=== PATIENT | female | born 1945 | race Caucasian/White ===

== ENCOUNTER 2018-01-18 21:07 | Observation (INO) | payer OTHER ==
--- NOTE | 2018-01-18 21:48 | EDPHY ---
H & P Stated Complaint: fall, left buttock injury Time Seen by Provider: 01/18/18 21:34 HPI/ROS: CHIEF COMPLAINT: Left buttock pain post mechanical fall HISTORY OF PRESENT ILLNESS: 72-year-old female arrives via private vehicle with family members complaining of acute left inferior buttock and sacral pain after she tripped on incongruent he, landed on her left buttock. This occurred earlier this evening. She has been unable to bear weight, borrowed a neighbor' s wheelchair. This was a mechanical non syncopal episode. She denies: Head injury, alcohol or drug use, C-spine pain or injury, thoracic or lumbar pain or injury, chest pain or injury, femoral pain or injury. REVIEW OF SYSTEMS: 10 systems reviewed and negative with the exception of the elements mentioned in the history of present illness PAST MEDICAL/SURGICAL HISTORY: no anticoagulant use, no relevant medical/ surgical history SOCIAL HISTORY: denies alcohol use at time of incident PHYSICAL EXAM 1) GENERAL: Well-developed, well-nourished, alert and oriented. Appears to be in no acute distress. Answering questions appropriately. 2) HEAD: Normocephalic, atraumatic 3) HEENT: Pupils equal, round, reactive to light bilaterally. Negative Horners. Nasopharynx, oropharynx, clear. No deformity or angulation of nose. No septal hematoma. No rhinorrhea. No oral trauma. Ears bilaterally with normal tympanic membranes. No hemotympanum. No fluid or blood in the external auditory canal. No raccoon eyes. No Harper sign. 4) NECK: No cervical collar is on. Posterior cervical spine is nontender, no stepoff, no effusion. Full range of motion which does not elicit any midline cervical spine pain, no posterior midline tenderness, no step-off. 5) LUNGS: Clear to auscultation bilaterally, no wheezes, no rhonchi, no retractions. No obvious signs of trauma. No chest wall pain. No flaring, no grunting. Moving symmetrically. No crepitus. 6) HEART: Regular rate and rhythm, 7) ABDOMEN: No guarding, no rebound, no focal tenderness, no peritoneal signs, no signs of trauma, no ecchymosis 8) MUSCULOSKELETAL: Tender to palpation inferior left buttock with soft compartments, no ecchymosis. Patella, Achilles reflex intact, no footdrop. Strength 5/5. No signs of trauma.No leg length discrepancy, no shortening no malrotation. Femur, hip nontender. No acetabular pain, no pain tender to palpation greater trochanteric region, soft compartment. 9) BACK: No midline vertebral thoracic lumbar pain tenderness. Tender to palpation lateral left sacral ala. 10) SKIN: No laceration. No abrasion DIFFERENTIAL DIAGNOSIS: In no particular order including but not limited to fracture, sprain, strain, dislocation - Personal History Current Tetanus Diphtheria and Acellular Pertussis (TDAP): Unsure - Medical/Surgical History Hx Asthma: No Hx Chronic Respiratory Disease: No Hx Diabetes: No Hx Cardiac Disease: No Hx Renal Disease: No Hx Cirrhosis: No Hx Alcoholism: No Hx HIV/AIDS: No Hx Splenectomy or Spleen Trauma: No Other PMH: elev cholersterol - Social History Smoking Status: Never smoked Constitutional: Initial Vital Signs Temperature (C) 37.2 C 01/18/18 21:14 Heart Rate 83 01/18/18 21:14 Respiratory Rate 20 01/18/18 21:14 Blood Pressure 122/81 H 01/18/18 21:14 O2 Sat (%) 94 01/18/18 21:14 O2 Delivery Mode Room Air Allergies/Adverse Reactions: No Known Allergies Allergy (Unverified 01/18/18 21:13) Home Medications: Medication Instructions Recorded Prevastatin 01/18/18 ED Images - Female Images Womans Torso Front/Back: 1 - tender to palpation Medical Decision Making - Diagnostics Imaging Results: Imaging Impressions Hip X-Ray 01/18/18 21:44 Impression: Negative. No discernible fracture. Pelvis CT 01/18/18 22:17 Impression: 1. Acute nondisplaced isolated fracture left posterior acetabular column. 2. No other pelvic fracture or femoral neck fracture. 3. No free fluid or hematoma. Findings discussed with Emergency Department physician sales assistant displaysYecenia at 01/18/2018 23:09. ED Course/Re-evaluation: 9:47 p.m.: Will obtain x-rays and re-evaluate. I saw this patient independently based on established practice protocols. Care of patient under supervision of secondary supervising physician Dr Rivero . 11:10 p.m.: I discussed with the patient her imaging studies showing a nondisplaced posterior acetabulum fracture. The patient is unable to bear weight. I had a lengthy discussion with her family and they are in agreement that they do not think it is safe for the patient be discharged. Will plan on admission to hospitalist service with orthopedic consultation. 11:16 p.m.: Consultation with Dr. Stewart Resendez who will consult orthopedics. Will consult with hospitalist 1120 pm: Consultation with Dr. Cortez who will admit patient. Departure - Departure Disposition: [facility] Inpatient Acute Clinical Impression: Left acetabular fracture Qualifiers: Encounter type: initial encounter Sublocation of acetabulum: posterior wall Fracture type: closed Fracture alignment: nondisplaced Qualified Code(s): S32.425A - Nondisplaced fracture of posterior wall of left acetabulum, initial encounter for closed fracture Condition: Fair Referrals: Michelle Avila MD [Primary Care Provider] - As per Instructions
[2018-01-18] MEDS ORDERED: ONDANSETRON DISINTEGRATING 4 MG TAB PO PRN (23:25)
[2018-01-18] MEDS ORDERED: ONDANSETRON 4 MG/2 ML VIAL IVP PRN (23:25)
[2018-01-18] MEDS ORDERED: IBUPROFEN 200 MG TAB PO PRN (23:25)
[2018-01-18] MEDS ORDERED: oxyCODONE IR 5 MG TAB PO PRN (23:25)
[2018-01-18 23:34] LABS: PLATELET COUNT 262 10^3/uL (150-400)
--- NOTE | 2018-01-19 00:31 | PDGENHP ---
History and Physical - Chief Complaint Fall - History of Present Illness 72 yo F w/ minimal PMHx presents after a fall. She was walking home from the grocery store when she tripped on a manhole cover and fell onto her L side. She then experienced significant L sided pelvic pain with ambulation. She denies LOC or head injury. Evaluation in the ED notable for acetabular fracture. She is unable to walk due to pain so she is being admitted for further management. Case discussed with ED physician Dr. Duarte; records reviewed in EMR. History Information - Allergies/Home Medication List Allergies/Adverse Reactions: No Known Allergies Allergy (Unverified 01/18/18 21:13) Home Medications: Prevastatin 01/18/18 [Last Taken Unknown] I have personally reviewed and updated: family history, medical history - Past Medical History hyperlipidemia - Surgical History Reports: no pertinent surgical hx - Family History Positive for: CAD - Social History Smoking Status: Never smoked Review of Systems Review of Systems: ROS: 10pt was reviewed & negative except for what was stated in HPI & below Physical Exam Physical Exam: Temp Pulse Resp BP Pulse Ox 37.1 C 85 16 128/72 H 93 01/19/18 00:04 01/19/18 00:04 01/19/18 00:04 01/19/18 00:04 01/19/18 00:04 Constitutional: appears nourished, uncomfortable Eyes: PERRL, EOMI Ears, Nose, Mouth, Throat: moist mucous membranes, no oral mucosal ulcers Cardiovascular: regular rate and rhythym, no murmur, rub, or gallop Respiratory: no respiratory distress, clear to auscultation Gastrointestinal: normoactive bowel sounds, soft, non-tender abdomen Skin: warm, normal color, no fluctuance Musculoskeletal: pain with ROM (L hip) Neurologic: AAOx3, CN II-XII Intact Psychiatric: interacting appropriately, not anxious Lab Data & Imaging Review 01/18/18 23:25 01/18/18 23:25 WBC 11.55 10^3/uL (3.80-9.50) H 01/18/18 23:25 RBC 4.59 10^6/uL (4.18-5.33) 01/18/18 23:25 Hgb 14.3 g/dL (12.6-16.3) 01/18/18 23:25 Hct 41.4 % (38.0-47.0) 01/18/18 23:25 MCV 90.2 fL (81.5-99.8) 01/18/18 23:25 MCH 31.2 pg (27.9-34.1) 01/18/18 23:25 MCHC 34.5 g/dL (32.4-36.7) 01/18/18 23: RDW 12.6 % (11.5-15.2) 01/18/18: Plt Count 262 10^3/uL (150-400) 01/18/18 23: MPV 9.7 fL (8.7-11.7) 01/18/18:25 Neut % (Auto) 68.9 % (39.3-74.2) 01/18/18 23: Lymph % (Auto) 21.3 % (15.0-45.0) 01/18/18: Peñuelas % (Auto) 8.4 % (4.5-13.0) 01/18/18: Eos % (Auto) 0.5 % (0.6-7.6) L 01/18/18 23: Baso % (Auto) 0.6 % (0.3-1.7) 01/18/18: Nucleat RBC Rel Count 0.0 % (0.0-0.2) 01/18/18: Absolute Neuts (auto) 7.96 10^3/uL (1.70-6.50) H 01/18/18 23:25 Absolute Lymphs (auto) 2.46 10^3/uL (1.00-3.00) 01/18/18 23: Absolute Monos (auto) 0.97 10^3/uL (0.30-0.80) H 01/18/18 23:25 Absolute Eos (auto) 0.06 10^3/uL (0.03-0.40) 01/18/18 23: Absolute Basos (auto) 0.07 10^3/uL (0.02-0.10) 01/18/18 23: Absolute Nucleated RBC 0.00 10^3/uL (0-0.01) 01/18/18 23:25 Immature Gran % 0.3 % (0.0-1.1) 01/18/18 23:25 Immature Gran # 0.03 10^3/uL (0.00-0.10) 01/18/18 23:25 Sodium 137 mEq/L (135-145) 01/18/18 23:25 Potassium 4.2 mEq/L (3.3-5.0) 01/18/18 23:25 Chloride 104 mEq/L (97-110) 01/18/18 23:25 Carbon Dioxide 24 mEq/l (22-31) 01/18/18 23:25 Anion Gap 9 mEq/L (8-16) 01/18/18 23:25 BUN 25 mg/dL (7-23) H 01/18/18 23:25 Creatinine 1.0 mg/dL (0.6-1.0) 01/18/18 23:25 Estimated GFR 54 01/18/18 23:25 Glucose 94 mg/dL (70-100) 01/18/18 23:25 Calcium 10.0 mg/dL (8.5-10.4) 01/18/18 23:25 Imaging Review: Imaging Impressions Hip X-Ray 01/18/18 21:44 Impression: Negative. No discernible fracture. Pelvis CT 01/18/18 22:17 Impression: 1. Acute nondisplaced isolated fracture left posterior acetabular column. 2. No other pelvic fracture or femoral neck fracture. 3. No free fluid or hematoma. Findings discussed with Emergency Department physician after school program assistantYecenia at 01/18/2018 23:09. Assessment & Plan Assessment: 72 yo F w/ hx of HLD presents with L acetabular fracture after a mechanical fall. Plan: 1. Pelvic fracture - CT(personally interpreted) reveals L posterior acetabular fracture. Patient is comfortable at rest but having pain with attempted ambulation. - Admit for observation - Orthopedics service consulted - Pain control with APAP annamaria + ibuprofen PRN (mod) and oxycodone PRN (severe) - PT/OT evaluations 2. HLD - Continue statins Diet - Regular (Non-surgical management expected) Code - Full Ppx - SCDs Dispo - Admit under observation status
[2018-01-19] MEDS: ACETAMINOPHEN 500 MG TAB PO SCH ×3 (01:18→15:24)
[2018-01-19 05:23] LABS: PLATELET COUNT 245 10^3/uL (150-400)
--- NOTE | 2018-01-19 07:13 | GCON ---
DATE OF CONSULTATION: 01/19/2018 CHIEF COMPLAINT: Left hip pain. HISTORY OF PRESENT ILLNESS: The patient is a 72-year-old community ambulator without assistive devic es, who sustained a fall resulting in left hip pain. She denies any previous problems or injuries re lative to her left hip. EXAMINATION: Relative to the consultation, she has symmetrical limb length, angulation and rotation. She has full hip range of motion with very minimal pain throughout complete range of motion. She h as no significant pain produced with noted range of motion with the hip at a flexed position. Her di stal neurovascular exam is intact. IMAGING: Review of CT scan shows evidence of a nondisplaced posterior wall acetabular fracture, enco mpassing approximately 25% of the overall articular surface. ASSESSMENT: Left posterior wall acetabular fracture. PLAN: Based on the displaced nature of her fracture, which encompasses a small portion of the articu lar surface, it was recommended that a nonoperative treatment course be pursued. She will be allowed to weight bear with a walker as tolerated. She was informed that the extreme likelihood is that thi s injury will heal nonsurgically. There is a small chance of development of a nonunion or posttrauma tic arthritis. Followup will be on an as-needed basis. /[id number]/MODL
[2018-01-19 10:44] VITALS: BP 138/78
[2018-01-19] MEDS ORDERED: traMADol 50 MG TAB PO PRN (12:40)
--- NOTE | 2018-01-19 13:10 | PDIAF ---
- Diagnosis Diagnosis: pelvic fracture Code Status: Full Code - Medication Management Discharge Medications: Medications to Continue on Transfer Pravastatin Sodium 20 mg PO HS 01/18/18 [Last Taken 01/17/18] Acetaminophen [Tylenol 325mg (*)] 650 mg PO Q6HRS PRN #90 01/19/18 [Last Taken Unknown] Cholecalciferol Vit D3 [Vitamin D3 (*)] 1,000 units PO HS 01/19/18 [Last Taken 01/17/18] Ibuprofen [Motrin (*)] 400 mg PO Q4HRS PRN #0 tab 01/19/18 [Last Taken Unknown] traMADol [Ultram 50 mg (*)] 25 mg PO Q4 PRN #30 tab 01/19/18 [Last Taken Unknown ] Discharge Medications: Refer to the Discharge Home Medication list for PRN reason. - Orders Services needed: Certified Siderographist, Physical Therapy, Occupational Therapy Diet Recommendation: no restrictions on diet Diet Texture: Regular Texture Diet Additional Instructions: Activity: Weight bearing with walker as tolerated F/U: with PCP in 1-2 weeks Please control pain with Tylenol and Ibuprofen. If still with pain, please try Tramadol as prescribed. Home Health care has been set up for you. - Follow Up Care Current Providers and Referrals: Michelle Avila MD [Primary Care Provider] - As per Instructions
--- NOTE | 2018-01-19 13:16 | PDDCSUM ---
Discharge Summary Discharge Summary: 72 yo F w/ hx of HLD presents with L acetabular fracture after a mechanical fall. She was evaluated by Orthopedics who recommended conservative management. Please see their consultation note. Pain has been well controlled with Tylenol, Ibuprofen, and Tramadol. PT has recommended HHC and this is being set up with additional PT/OT support. She is weight bearing with walker as tolerated. She will f/u with her PCP in one week. DDX: 1. Left posterior wall Acetabular fracture - CT reveals L posterior acetabular fracture. Patient is comfortable at rest but having pain with attempted ambulation. 2. HLD - Continue statins Exam: NAD AAOX3 RRR CTA B S/NT/ND MEDS: SEE MED REC F/U: PER ABOVE TOTAL TIME SPENT ON D/C IS 35 MINS
--- NOTE | 2018-01-19 17:43 | ASMTLACE ---
LACE Length of stay for Answers: 1 day current admission Acuity / Level of Answers: No Care: Did the patient have an inpatient admission? Comorbidities - select Answers: Other Notes: Hyperlipidemia all that apply # of Emergency department Answers: 1-2 visits in the last 6 months Score: 3 Date Signed: 01/19/2018 12:32 PM Electronically Signed By:Leslie London RN
--- NOTE | 2018-01-19 18:31 | ASMTCMCOM ---
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 Pt tripped over manhole and injured her left hip but does not need surgery. PT recommends home care, Eleazar at [facility] notified and accepts pt. DC Plan: Home care/ [facility] (PT/OT) Date Signed: 01/19/2018 12:32 PM Electronically Signed By:Leslie London RN
--- NOTE | 2018-01-20 10:32 | ASDISCHSUM ---
Discharge Information Plan Status: Medically Cleared to Leave: Discharge Date:01/19/2018 03:50 PM CM D/C Disposition: [facility] D/C Disposition:[id number] Projected Discharge Date:01/19/2018 11:00 AM Transportation at D/C: Discharge Delay Reason: Follow-Up Date:01/19/2018 11:00 AM Discharge Slot: Final Diagnosis: Placement Information Referral Type:*Home Health Care Services Referral ID:[facility]-[id number] Provider Name:[facility] Address 1:[address] Address 2: City:[place] Selection Factors: State:[place] Patient Contact Information Contact Name:YOLA Relationship: Address:[address] Work Phone: City:[place] Alternate Phone: State/Zip Code:[place] [address] Email: Financial Information Financial Class:Medicare Primary Plan Desc:MEDICARE OUTPATIENT Primary Plan Number:[id number] Secondary Plan Desc:[employer] SUPP Secondary Plan Number:[id number] Assessment Information LACE LACE Length of stay for Answers: 1 day current admission Acuity / Level of Answers: No Care: Did the patient have an inpatient admission? 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 Pt tripped over [facility] and injured her left hip but does not need surgery. PT recommends home care, Eleazar at [facility] notified and accepts pt. DC Plan: Home care/ [facility] (PT/OT) Date Signed: 01/19/2018 12:32 PM Electronically Signed By:Leslie London RN Intervention Information Intervention Type:*NICK-Signed Date of Service:01/19/2018 10:32 AM Patient Type:Observation Staff Member:Laura Anne Hours: Discipline: Severity: Comment:
== END 2018-01-19 15:50 | disposition home health service (06) ==
LOC: F3N 01-19 00:13
PROVIDERS: ADMIT Student in an Organized Health Care Education/Training Program; ATTEND Student in an Organized Health Care Education/Training Program
DX: S32.445A Nondisplaced fracture of posterior column [ilioischial] of left acetabulum, initial encounter for closed fracture (principal); W01.0XXA Fall on same level from slipping, tripping and stumbling without subsequent striking against object, initial encounter; Y92.488 Other paved roadways as the place of occurrence of the external cause; E78.5 Hyperlipidemia, unspecified
CPT/HCPCS: 72192; 73502; 97161; 97165; 97535; 99285; G0378; G8978; G8979; G8980; G8987; G8988; G8989

== ENCOUNTER → 2018-05-16 | Outpatient (CLI) | payer OTHER | LOC: FIMAGING 13:41 | PROVIDERS: ATTEND Family Medicine | DX: Z13.820 Encounter for screening for osteoporosis (principal); M85.89 Other specified disorders of bone density and structure, multiple sites ==